=== PATIENT | male | born 1975 | race Caucasian/White ===

== ENCOUNTER 2016-06-16 17:44 | Emergency (ER) | payer OTHER ==
--- NOTE | 2016-06-16 18:22 | ED CLINICAL REPORT ---
Clinical Report - Physicians/Mid Levels [facility] [address] [place] [address] 06/16/2016 17:44 [id number] Time Seen: 17:55 Jun 16 2016. Arrived- By private vehicle. Historian- patient. CPT: ER phys charges level 3 (#[id number]). HISTORY OF PRESENT ILLNESS Chief Complaint: EYE REDNESS. 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 The patient did not sustain an injury. Eye discomfort, redness, irritation and discharge. Moderate right and left eye matting. Eyelid swelling. No photophobia, blurred vision or double vision. REVIEW OF SYSTEMS No fever, sore throat or cough. All systems otherwise negative, except as recorded above. PAST HISTORY See nurses notes. No history of prior eye injury, diabetes mellitus or glaucoma. He does not wear contact lenses. SOCIAL HISTORY Former smoker. No alcohol use or drug use. ADDITIONAL NOTES The nursing notes have been reviewed. PHYSICAL EXAM Vital Signs: 06/16/2016 17:52 BP: 139/96. HR: 94. RR: 16. O2 saturation: 98%. Temp: 98.4 F. Pain level now: 1/10. Appearance: Alert. Oriented X3. No acute distress. HEENT: Ears normal. Nose normal. Pharynx normal. Head appears normal to external inspection. Rt Eye: Mild eyelid edema and erythema. Injected conjunctiva. Exudate present. No foreign body under the eyelid. No conjunctival edema. Eyes: Visual acuity normal bilaterally. Right and left eyelid everted for examination. Corneas appear normal to inspection. Pupils equal, round and reactive to light. Accommodation normal. EOMs intact. Periorbital areas appear normal to inspection. Anterior chambers clear. Anterior chambers of normal depth. Lt Eye: Mild eyelid edema and erythema. Injected conjunctiva. Exudate present. No foreign body under the eyelid. No conjunctival edema. Neck: Neck supple. CVS: Normal heart rate and rhythm. Heart sounds normal. Respiratory: No respiratory distress. Breath sounds normal. Skin: No rash. Neuro: Oriented X 3. PROGRESS AND PROCEDURES Patient/family counseled. Disposition: Discharged. Condition: stable. CLINICAL IMPRESSION Acute mucopurulent conjunctivitis of the right eye and left eye. INSTRUCTIONS Warnings: Further evaluation is necessary. GENERAL WARNINGS: Return or contact your physician immediately if your condition worsens or changes unexpectedly, if not improving as expected, or if other problems arise. Prescription Medications: Garamycin ophthalmic solution 0.3% : Instill 1 drop into affected eye every 4 hours while awake for 1 week. Dispense five (5) mL. No refills. Substitution is permissible. Bactrim DS 800 mg / 160 mg: Take 1 tablet orally every 12 hours for 7 days. Dispense fourteen (14). No refills. Substitution is permissible. OTC Medications: Acetaminophen (available over the counter): take according to label instructions. Follow-up: Follow up with your doctor Sunday in three days if not better. Understanding of the discharge instructions verbalized by patient. (Electronically signed by Thuan Peter MD 06/16/2016 20:24)
--- NOTE | 2016-06-16 18:22 | ED CLINICAL REPORT ---
Clinical Report - Physicians/Mid Levels [facility] [address] [place] [address] 06/16/2016 17:44 [id number] Time Seen: 17:55 Jun 16 2016. Arrived- By private vehicle. Historian- patient. CPT: ER phys charges level 3 (#[id number]). HISTORY OF PRESENT ILLNESS Chief Complaint: EYE REDNESS. 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 The patient did not sustain an injury. Eye discomfort, redness, irritation and discharge. Moderate right and left eye matting. Eyelid swelling. No photophobia, blurred vision or double vision. REVIEW OF SYSTEMS No fever, sore throat or cough. All systems otherwise negative, except as recorded above. PAST HISTORY See nurses notes. No history of prior eye injury, diabetes mellitus or glaucoma. He does not wear contact lenses. SOCIAL HISTORY Former smoker. No alcohol use or drug use. ADDITIONAL NOTES The nursing notes have been reviewed. PHYSICAL EXAM Vital Signs: 06/16/2016 17:52 BP: 139/96. HR: 94. RR: 16. O2 saturation: 98%. Temp: 98.4 F. Pain level now: 1/10. Appearance: Alert. Oriented X3. No acute distress. HEENT: Ears normal. Nose normal. Pharynx normal. Head appears normal to external inspection. Rt Eye: Mild eyelid edema and erythema. Injected conjunctiva. Exudate present. No foreign body under the eyelid. No conjunctival edema. Eyes: Visual acuity normal bilaterally. Right and left eyelid everted for examination. Corneas appear normal to inspection. Pupils equal, round and reactive to light. Accommodation normal. EOMs intact. Periorbital areas appear normal to inspection. Anterior chambers clear. Anterior chambers of normal depth. Lt Eye: Mild eyelid edema and erythema. Injected conjunctiva. Exudate present. No foreign body under the eyelid. No conjunctival edema. Neck: Neck supple. CVS: Normal heart rate and rhythm. Heart sounds normal. Respiratory: No respiratory distress. Breath sounds normal. Skin: No rash. Neuro: Oriented X 3. PROGRESS AND PROCEDURES Patient/family counseled. Disposition: Discharged. Condition: stable. CLINICAL IMPRESSION Acute mucopurulent conjunctivitis of the right eye and left eye. INSTRUCTIONS Warnings: Further evaluation is necessary. GENERAL WARNINGS: Return or contact your physician immediately if your condition worsens or changes unexpectedly, if not improving as expected, or if other problems arise. Prescription Medications: Garamycin ophthalmic solution 0.3% : Instill 1 drop into affected eye every 4 hours while awake for 1 week. Dispense five (5) mL. No refills. Substitution is permissible. Bactrim DS 800 mg / 160 mg: Take 1 tablet orally every 12 hours for 7 days. Dispense fourteen (14). No refills. Substitution is permissible. OTC Medications: Acetaminophen (available over the counter): take according to label instructions. Follow-up: Follow up with your doctor Sunday in three days if not better. Understanding of the discharge instructions verbalized by patient. (Electronically signed by Thuan Peter MD 06/16/2016 20:24)
--- NOTE | 2016-06-16 18:22 | ED NURSING NOTES ---
Clinical Report - Nurses [facility] [address] [place] [address] 06/16/2016 17:44 Patient: MAEGAN VALENCIA TRIAGE Triage time 17:52 Jun 16 2016. Acuity: LEVEL 4. Chief Complaint: REDNESS TO RIGHT EYE. 18:00 06/16/16. Alert. No acute distress. SEPSIS SCREEN: Sepsis Screen. Negative (no infection suspected/documented). VISUAL ACUITY: Visual acuity performed without corrective lenses: able to read newsprint; see hand motion; perceive light; left eye 20/25; right eye 20/50 minus one letter; both eyes 20/20 minus one letter. Patient does not wear corrective lenses. --18:00 Nette Harrington 17:52 06/16/16. BP: 139/96 (regular adult cuff) taken on the left arm, while sitting. HR: 94. RR: 16 (regular and unlabored). O2 saturation: 98% on room air. Temp: 98.4 F (oral). Pain level now: 05/23. --18:00 Nette Harrington. Weight: 108.8 kg stated. Height/Length: 71 inches Per Patient. BMI: 33.5. --17:55 Nette Harrington. Medications None. --17:54 Nette Harrington. Medication/allergy information source: the patient. --18:00 Nette Harrington. Allergies None. --17:54 Nette Harrington. History Arrived by private vehicle. Historian: patient. Unaccompanied. No primary care physician. Onset. (One Week Ago). ( Pt reports that he had a white dot that appeared in his eye about a week ago. Has blurred vision. Eye is itchy. States that he used sty medication OTC.). He has had eye discomfort, eye irritation and blurred vision. He has had thick eye discharge (white drainage.). 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 Also Visine). PAST MEDICAL HX: Has had a prior eye injury. No history of diabetes mellitus or hypertension. No history of glaucoma. He does not wear contact lenses. Immunizations: status is unknown. SOCIAL HX: Former smoker (cigarette)- more than 2 packs per day. No alcohol use or drug use. FALL RISK ASSESSMENT: Fall risk assessment completed. No fall risk identified. NUTRITIONAL RISK ASSESSMENT: The nutritional risk assessment revealed no deficiencies. FUNCTIONAL ASSESSMENT: Functional assessment: no impairments noted. LEARNING NEEDS ASSESSMENT: The learning needs assessment revealed no barriers. SKIN INTEGRITY ASSESSMENT: Skin integrity risk assessment completed. No skin integrity risk identified. --18:00 Nette Harrington. ADDITIONAL SURGERIES: Lung biopsy. Tonsillectomy. --17:55 Nette Harrington. Assessment The patient states feels the same. --18:00 Nette Harrington. Interventions ID band on patient. --18:00 Nette Harrington. PHYSICAL ASSESSMENT 18:00 06/16/16. Ambulatory to room. GENERAL / NEURO / PSYCH: Alert. Appears in no acute distress. HEENT: No facial asymmetry noted. Pupils equal, round and reactive to light. EOM intact. Right ear within normal limits. Left ear within normal limits. Mouth inspection within normal limits. Pharynx within normal limits. RESPIRATORY: Respirations not labored. CVS: Capillary refill less than 2 seconds. SKIN: Skin is warm and dry. Normal skin turgor. --18:00 Nette Harrington. NURSING PROGRESS NOTES 18:00 06/16/16. The plan of care for this patient has been created. Head of bed elevated. Reassurance given. Two patient identifiers checked. Call light placed in reach. Side rails up x 1. Bed placed in lowest position. Brakes of bed on. Patient ready for evaluation- chart flagged and ED physician and ONLINE ADVERTISING MANAGER notified. --18:00 Nette Harrington. DISPOSITION / DISCHARGE 18:32 06/16/16. Departure time: 18:31 Jun 16 2016. Condition at departure: unchanged. The goals identified in the patient's plan of care were met. No learning barriers present. Discharge instructions provided and reviewed with the patient. Reviewed medication(s) side effects, precautions, dosing and course information. Prescription(s) given to the patient (Garamycin, Tylenol, Bactrim). Treatments reviewed. Reviewed referral to a primary care physician for followup. Patient verbalized understanding. Written instructions provided in Romansh. The patient was discharged by the physician. He was discharged home and unaccompanied at time of discharge. He left the Emergency Department ambulatory and via private vehicle. Patient driving. FALL RISK ASSESSMENT: Fall risk assessment completed. No fall risk identified. --18:32 Nette Harrington 18:31 06/16/16. BP: deferred. HR: deferred. RR: deferred. O2 saturation: deferred. Temp: deferred. Pain level now deferred. 17:52 06/16/16. BP: 139/96 (regular adult cuff) taken on the left arm, while sitting. HR: 94. RR: 16 (regular and unlabored). O2 saturation: 98% on room air. Temp: 98.4 F (oral). Pain level now: 05/23. --18:32 Nette Harrington. Locked/Released at 06/16/2016 18:32 by Nette Harrington,
--- NOTE | 2016-06-16 18:22 | ED NURSING NOTES ---
Clinical Report - Nurses [facility] [address] [place] [address] 06/16/2016 17:44 Patient: MAEGAN VALENCIA TRIAGE Triage time 17:52 Jun 16 2016. Acuity: LEVEL 4. Chief Complaint: REDNESS TO RIGHT EYE. 18:00 06/16/16. Alert. No acute distress. SEPSIS SCREEN: Sepsis Screen. Negative (no infection suspected/documented). VISUAL ACUITY: Visual acuity performed without corrective lenses: able to read newsprint; see hand motion; perceive light; left eye 20/25; right eye 20/50 minus one letter; both eyes 20/20 minus one letter. Patient does not wear corrective lenses. --18:00 Nette Harrington 17:52 06/16/16. BP: 139/96 (regular adult cuff) taken on the left arm, while sitting. HR: 94. RR: 16 (regular and unlabored). O2 saturation: 98% on room air. Temp: 98.4 F (oral). Pain level now: 05/23. --18:00 Nette Harrington. Weight: 108.8 kg stated. Height/Length: 71 inches Per Patient. BMI: 33.5. --17:55 Nette Harrington. Medications None. --17:54 Nette Harrington. Medication/allergy information source: the patient. --18:00 Nette Harrington. Allergies None. --17:54 Nette Harrington. History Arrived by private vehicle. Historian: patient. Unaccompanied. No primary care physician. Onset. (One Week Ago). ( Pt reports that he had a white dot that appeared in his eye about a week ago. Has blurred vision. Eye is itchy. States that he used sty medication OTC.). He has had eye discomfort, eye irritation and blurred vision. He has had thick eye discharge (white drainage.). 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 Also Visine). PAST MEDICAL HX: Has had a prior eye injury. No history of diabetes mellitus or hypertension. No history of glaucoma. He does not wear contact lenses. Immunizations: status is unknown. SOCIAL HX: Former smoker (cigarette)- more than 2 packs per day. No alcohol use or drug use. FALL RISK ASSESSMENT: Fall risk assessment completed. No fall risk identified. NUTRITIONAL RISK ASSESSMENT: The nutritional risk assessment revealed no deficiencies. FUNCTIONAL ASSESSMENT: Functional assessment: no impairments noted. LEARNING NEEDS ASSESSMENT: The learning needs assessment revealed no barriers. SKIN INTEGRITY ASSESSMENT: Skin integrity risk assessment completed. No skin integrity risk identified. --18:00 Nette Harrington. ADDITIONAL SURGERIES: Lung biopsy. Tonsillectomy. --17:55 Nette Harrington. Assessment The patient states feels the same. --18:00 Nette Harrington. Interventions ID band on patient. --18:00 Nette Harrington. PHYSICAL ASSESSMENT 18:00 06/16/16. Ambulatory to room. GENERAL / NEURO / PSYCH: Alert. Appears in no acute distress. HEENT: No facial asymmetry noted. Pupils equal, round and reactive to light. EOM intact. Right ear within normal limits. Left ear within normal limits. Mouth inspection within normal limits. Pharynx within normal limits. RESPIRATORY: Respirations not labored. CVS: Capillary refill less than 2 seconds. SKIN: Skin is warm and dry. Normal skin turgor. --18:00 Nette Harrington. NURSING PROGRESS NOTES 18:00 06/16/16. The plan of care for this patient has been created. Head of bed elevated. Reassurance given. Two patient identifiers checked. Call light placed in reach. Side rails up x 1. Bed placed in lowest position. Brakes of bed on. Patient ready for evaluation- chart flagged and ED physician and NUTRITION ASSOCIATE notified. --18:00 Nette Harrington. DISPOSITION / DISCHARGE 18:32 06/16/16. Departure time: 18:31 Jun 16 2016. Condition at departure: unchanged. The goals identified in the patient's plan of care were met. No learning barriers present. Discharge instructions provided and reviewed with the patient. Reviewed medication(s) side effects, precautions, dosing and course information. Prescription(s) given to the patient (Garamycin, Tylenol, Bactrim). Treatments reviewed. Reviewed referral to a primary care physician for followup. Patient verbalized understanding. Written instructions provided in Mohawk. The patient was discharged by the physician. He was discharged home and unaccompanied at time of discharge. He left the Emergency Department ambulatory and via private vehicle. Patient driving. FALL RISK ASSESSMENT: Fall risk assessment completed. No fall risk identified. --18:32 Nette Harrington 18:31 06/16/16. BP: deferred. HR: deferred. RR: deferred. O2 saturation: deferred. Temp: deferred. Pain level now deferred. 17:52 06/16/16. BP: 139/96 (regular adult cuff) taken on the left arm, while sitting. HR: 94. RR: 16 (regular and unlabored). O2 saturation: 98% on room air. Temp: 98.4 F (oral). Pain level now: 05/23. --18:32 Nette Harrington. Locked/Released at 06/16/2016 18:32 by Nette Harrington,
--- NOTE | 2016-06-16 20:24 | ED DISCHARGE INSTRUCTIONS ---
Patient: MAEGAN VALENCIA General Instructions [facility] VisitID: [id number] [place] [address] 41y, M Registration Date/Time: 06/16/2016 INSTRUCTIONS Warnings: Further evaluation is necessary. GENERAL WARNINGS: Return or contact your physician immediately if your condition worsens or changes unexpectedly, if not improving as expected, or if other problems arise. Prescription Medications: Garamycin ophthalmic solution 0.3% : Instill 1 drop into affected eye every 4 hours while awake for 1 week. Dispense five (5) mL. No refills. Substitution is permissible. Bactrim DS 800 mg / 160 mg: Take 1 tablet orally every 12 hours for 7 days. Dispense fourteen (14). No refills. Substitution is permissible. OTC Medications: Acetaminophen (available over the counter): take according to label instructions. Follow-up: Follow up with your doctor Sunday in three days if not better. Understanding of the discharge instructions verbalized by patient. ADDITIONAL INFORMATION Conjunctivitis, Bacterial You have a bacterial infection in the membranes covering the eye. The most common symptoms include a thick discharge from the eye, swollen eyelids, redness, eyelids sticking together upon awakening, and a gritty or scratchy feeling in the eye. The infection takes about 7-10 days to resolve with treatment. Home Care: Use prescribed eyedrops or ointment as directed to treat the infection. Apply a warm pack (towel soaked in warm water) to the affected eye 3-4 times a day. Do this just before applying medicine to the eye. Use a warm, wet cloth to wipe away crusting of the eyelids in the morning. This is caused by mucus drainage during the night. You may also use saline irrigating solution or artificial tears to rinse away mucus inside the eye. Do not put a patch over the eye. Wash your hands before and after touching the infected eye. This is to prevent spreading the infection to the other eye, and to other people. Do not share your towels or washcloths with others. You may use acetaminophen (Tylenol) or ibuprofen (Motrin, Advil) to control pain, unless another medicine was prescribed. [NOTE: If you have chronic liver or kidney disease or ever had a stomach ulcer or GI bleeding, talk with your doctor before using these medicines.] Do not wear contact lenses until your eyes have healed and all symptoms are gone. Follow Up with your doctor or this facility as directed, or if there has not been improvement within 5 days. Get Prompt Medical Attention if any of the following occur: Worsening vision Increasing pain in the eye Increasing swelling or redness of the eyelid Redness spreading around the eye You have been given the following additional information: Conjunctivitis, Bacterial (Electronically signed by Thuan Peter MD 06/16/2016 20:24)
--- NOTE | 2016-06-16 20:24 | ED MED RECONCILIATION SUMMARY ---
Patient: MAEGAN VALENCIA Medication Reconciliation Report [facility] VisitID: [id number] [address] [place] [address] 41y, M Registration Date/Time: 06/16/2016 Weight: 108.8 kg Height/Length: 71 in. BMI: 33.5 ALLERGIES: None The patient's Home Medications are listed below: NONE. The source(s) of the original Home Medication information: patient The following Medications were given to the patient in the Emergency Department: None. The following Medications were prescribed to the patient: Acetaminophen (available over the counter): take according to label instructions. -- Thuan Peter MD Garamycin ophthalmic solution 0.3% : Instill 1 drop into affected eye every 4 hours while awake for 1 week. Dispense five (5) mL. No refills. Substitution is permissible. -- Thuan Peter MD Bactrim DS 800 mg / 160 mg: Take 1 tablet orally every 12 hours for 7 days. Dispense fourteen (14). No refills. Substitution is permissible. -- Thuan Peter MD
--- NOTE | 2016-06-16 20:24 | ED MAR SUMMARY ---
..... Medication Administration Record [facility] [address] [place], [place] [id number] Patient: MAEGAN VALENCIA Visit ID: [id number] 41y, M Weight: 108.8 kg Height/Length: 71 in BMI: 33.5 ALLERGIES: None
--- NOTE | 2016-06-16 20:24 | ED MED RECONCILIATION SUMMARY ---
Patient: MAEGAN VALENCIA Medication Reconciliation Report [facility] VisitID: [id number] [address] [place] [address] 41y, M Registration Date/Time: 06/16/2016 Weight: 108.8 kg Height/Length: 71 in. BMI: 33.5 ALLERGIES: None The patient's Home Medications are listed below: NONE. The source(s) of the original Home Medication information: patient The following Medications were given to the patient in the Emergency Department: None. The following Medications were prescribed to the patient: Acetaminophen (available over the counter): take according to label instructions. -- Thuan Peter MD Garamycin ophthalmic solution 0.3% : Instill 1 drop into affected eye every 4 hours while awake for 1 week. Dispense five (5) mL. No refills. Substitution is permissible. -- Thuan Peter MD Bactrim DS 800 mg / 160 mg: Take 1 tablet orally every 12 hours for 7 days. Dispense fourteen (14). No refills. Substitution is permissible. -- Thuan Peter MD
--- NOTE | 2016-06-16 20:24 | ED MAR SUMMARY ---
..... Medication Administration Record [facility] [address] [place], [place] [id number] Patient: MAEGAN VALENCIA Visit ID: [id number] 41y, M Weight: 108.8 kg Height/Length: 71 in BMI: 33.5 ALLERGIES: None
== END 2016-06-16 18:32 | disposition home or self-care (01) ==
LOC: ED SRH 17:44
DX: H10.023 Other mucopurulent conjunctivitis, bilateral (principal); Z87.891 Personal history of nicotine dependence

== ENCOUNTER 2016-09-12 20:15 | Emergency (ER) | payer OTHER ==
--- NOTE | 2016-09-12 22:11 | DIAGNOSTIC IMAGING REPORT ---
PROCEDURE: XR CHEST 2 VIEW INDICATION: CHEST PAIN TECHNIQUE: PA and lateral views. COMPARISON: Compared to chest x-ray on 12/22/2013. FINDINGS: Lungs are clear. Heart and mediastinum are normal. Thorax is normal. IMPRESSION: 1. Negative chest.
--- NOTE | 2016-09-12 22:32 | ED ORDER SUMMARY ---
..... Patient: MAEGAN VALENCIA OrderSheet [facility] VisitID: [id number] [place] [address] 41y, M Registration Date/Time: 09/12/2016 ORDER SHEET Weight: 104.3 kg (stated) Allergies: No Known Drug Allergy GENERAL ORDERS: EKG - ER Stat (20:27 09/12/2016 DDavis R.N. per protocol) (Ack 20:39 CHategekimana) (20:39 CHategekimana) Chest 2V Urgent (20:39 09/12/2016 EKoroleva P.A.-C) (Ack 20:42 CHategekimana) (21:16 MCampbell) Rapid Influenza Screen (Nasal Pharyngeal) (n) Urgent (20:39 09/12/2016 EKoroleva P.A.-C) (20:41 DDavis R.N.) Cardiac Panel Stat (20:39 09/12/2016 EKoroleva P.A.-C) (20:41 DDavis R.N.) Lactate, Serum Urgent (20:59 09/12/2016 EKoroleva P.A.-C) (21:00 DDavis R.N.) PCT (Procalcitonin) Urgent (20:59 09/12/2016 EKoroleva P.A.-C) (21:00 DDavis R.N.) Vitals (21:31 09/12/2016 EKoroleva P.A.-C) (21:32 DDavis R.N.) MEDICATION ORDERS: Doxycycline Monohydrate PO 100 mg (NOW) (22:19 09/12/2016 EKoroleva P.A.-C) (22:26 DDavis R.N.) IV FLUIDS: IV NS : initial bolus 1000 mL (1000 mL/hr), then 1000 mL/hr for X1 (NOW); Wilver (20:39 09/12/2016 EKoroleva P.A.-C) (20:42 DDavis R.N.) ORDER SHEET NOTES: [Electronically signed by Caren Goss PSepidehASepideh-C (22:28 09/12/2016)] [Electronically signed by Ravi Heller R.N. (23:06 09/12/2016)] [Electronically locked/signed by Ravi Heller R.N. (23:06 09/12/2016)]
--- NOTE | 2016-09-12 22:32 | ED CLINICAL REPORT ---
Clinical Report - Physicians/Mid Levels [facility] [address] [place] [address] 09/12/2016 20:17 Patient: MAEGAN VALENCIA Time Seen: 20:34 Sep 12 2016. Arrived- By private vehicle. Historian- patient (brother). HISTORY OF PRESENT ILLNESS Chief Complaint: DYSPNEA and HISTORY OF CHRONIC OBSTRUCTIVE PULMONARY DISEASE. This started last night and is still present. The patient has had a cough and chills. No chest pain. (patient reports shortness of breath over the last 2 days, and Relafen recently ill. Denies any hemoptysis. Denies any pain. Reports some chills, possible fevers. Patient recently received a tattoo in his right arm Denies any arthralgias. Denies any emesis or diarrhea. Denies any foreign travel. Patient reports daily smoker since age of 8). REVIEW OF SYSTEMS No vomiting, diarrhea or joint pain. PAST HISTORY Problems: Conjunctivitis. Eye Injury. Substance Abuse. Hypertension. Atypical Chest Pain. COPD - Chronic Obstructive Pulmonary Disease. Contusion. Bronchitis. Tetanus Status. Epididymitis. Immunizations. Additional Surgeries: Lung biopsy. Tonsillectomy. Medications: None. Allergies: No Known Drug Allergy. SOCIAL HISTORY Current every day heavy tobacco smoker. No alcohol use or drug use. ADDITIONAL NOTES The nursing notes have been reviewed. PHYSICAL EXAM Vital Signs: 09/12/2016 20:26 BP: 134/99. HR: 123. RR: 22. O2 saturation: 100%. Temp: 98.4 F. Pain level now: 0/10. Appearance: Alert. ENT: Nose normal. Pharynx normal. Neck: Normal inspection. CVS: Tachycardia. Respiratory: No respiratory distress. No splinting. Abdomen: Soft and nontender. No organomegaly. No guarding or distention. Back: Normal inspection. Skin: Skin warm. Normal skin color. Neuro: Oriented X 3. LABS, X-RAYS, AND EKG EKG: EKG time: (2038). No acute process. No acute ischemia. Rate: 114. Normal P waves. Normal QRS complex. Normal axis. Normal ST and T waves and QT. The study has been interpreted contemporaneously. The EKG appears to be a good tracing. Chest X-ray: (IMPRESSION: 1. Negative chest. Electronically Final signed by:Terrence Romero MD 09/12/2016 10:08:00 PM). Laboratory Tests: CBC w Diff: (DURGA: 09/12/2016 20:30) ( [facility] 09/12/2016 21:38) Final results Test Result Flag Units (Reference) WHITE BLOOD COUNT 13.9 H K/uL (4.5-11.5) RED BLOOD COUNT 5.82 M/uL (4.50-5.90) HEMOGLOBIN 17.5 gm/dL (13.5-17.5) HEMATOCRIT 52.2 % (41.0-53.0) MEAN CELL VOLUME 90 fL (80-100) MEAN CORPUSCULAR HGB 30 pg (26-34) MEAN CORPUSCULAR HGB CONC 34 g/dL (31-37) RED CELL DISTRIBUTION WIDTH 13.6 % (11.6-14.8) PLATELET COUNT 213 K/uL (150-400) POLY % 27 L % (50-75) BAND % 2 % (0-8) LYMPH 63 H % (25-40) MONO 6 % (3-14) EOSINOPHIL % 2 % (0-4) BASOPHIL % 0 % (0-2) METAMYELOCYTE % 0 % (0-1) MYELOCYTE 0 % (0-1) OTHER CELL TYPE 0 RBC MORPHOLOGY NORMOCHROMIC~~NORMOCYTIC OCT COMMENT 1+ BASKET CELLS Lactate, Serum: (DURGA: 09/12/2016 21:05) ( [facility] 09/12[facility] 22:00) Final results Test Result Flag Units (Reference) LACTIC ACID 1.4 mmol/L (0.4-2.0) [id number]: (DURGA: 09/12/2016 21:05) ( [facility] 09[facility]12[facility]2016 21:59) Final results Test Result Flag Units (Reference) PROCALCITONIN <0.5 ng/mL (0-0.5) PCT Concentration: Interpretation : Risk/option for action PCT <=0.5 ng/mL : Systemic : Low risk forinfection(sepsis): progression to severeis not likely. : systemic infection.Local bacterial : CAUTION-PCT levelsinfection is : below 0.5 ng/mL do notpossible. : exclude an infection,because localizedinfections (withoutsystemic signs) may beassociated with suchlow levels. If PCT ismeasured very earlyafter a bacterialchallenge (usually <6hours), these valuesmay still be low. Inthis case PCT shouldbe re-assessed 6-24hours later. PCT >0.5 and : Systemic infection: Moderate risk for<= 2 ng/mL : (sepsis) is : progression to severepossible, but : systemic infection.other conditions : The patient should beare known to : closely monitoredelevate PCT. : both clinically andby re-assessing PCTwithin 6-24 hours. PCT > 2 ng/mL : Systemic infection: High risk for(sepsis) is likely: progression to severeunless other : systemic infection.causes are known. : PCT >= 10 ng/mL : Important systemic: High likelihood ofinflammatory : severe sepsis orresponse, almost : septic shock.exclusively due to:severe bacterial :sepsis or septic :shock. : CHEM 13 PANEL: (DURGA: 09/12/2016 20:30) ( MsgRcvd 09/12/2016 21:08) Final results Test Result Flag Units (Reference) GLUCOSE 143 H mg/dL (70-110) BUN 13 mg/dL (7-18) CREATININE 1.2 mg/dL (0.6-1.3) Estimated GFR >60 mL/min Estimated GFR- >60 mL/min Note: Persistent reduction over 3 months in eGFR<60 mL/min/1.73 m2 defines CKD. Patients with eGFR values>=60 mL/min/1.73 m2 may also have CKD if evidence ofpersistent proteinuria. Additional information may be foundat www.kidney.org. SODIUM 135 L mmol/L (136-145) POTASSIUM 3.7 mmol/L (3.5-5.1) CHLORIDE 102 mmol/L (98-107) CARBON DIOXIDE 24 mmol/L (21-32) CALCIUM 8.8 mg/dL (8.5-10.1) TOTAL PROTEIN 8.1 g/dL (6.4-8.2) ALBUMIN 3.7 g/dL (3.3-5.0) BILIRUBIN, TOTAL 0.5 mg/dL (0.0-1.0) ALKALINE PHOSPHATASE 171 H U/L (46-116) AST (SGOT) 74 H U/L (15-37) ALT (SGPT) 163 H U/L (12-78) CPK 54 U/L (24-260) MAGNESIUM 2.2 mg/dL (1.8-2.4) TROPONIN I <0.05 L ng/mL (0.00-1.5) TROPONIN REFERENCE RANGE:<0.1 NEGATIVE0.1-1.5 INDETERMINANT>1.5 POSITIVE Rapid Influenza Screen: (DURGA: 09/12/2016 20:30) ( MsgRcvd 09/12/2016 21:08) Final results SPECIMEN DESCRIPTION: N Test Result Flag Units (Reference) RAPID INFLUENZA SCREEN DATE: 09/12/16 INFLUENZA A: NEGATIVE SCREEN FOR INFLUENZA A INFLUENZA B: NEGATIVE SCREEN FOR INFLUENZA B . PROGRESS AND PROCEDURES Course of Care: Patient was signed of leukocytosis in the emergency department, otherwise his tachycardia has resolved after IV hydration. Chest x-ray was signs of no acute process, patient is a 2-3 pack-a-day smoker since age 8, significant smoking cessation and encouraged rest such was discussed with him in detail.ent understands her risks for cardiac disease, cancer. Will start on COPD exacerbation with Dr. Sawyer. Pro-calcitonin a lactic acid are unremarkable. 09/12/2016 22:19 BP: 133/91. HR: 94. RR: 20. O2 saturation: 99%. 09/12/2016 22:11 HR: 90. O2 saturation: 98%. Patient is stable. Symptoms better. Patient/family counseled. 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 This is a partial list of diagnoses considered. Disposition: Discharged. CLINICAL IMPRESSION Acute exacerbation of COPD. INSTRUCTIONS Do not work tomorrow. Warnings: Further evaluation is necessary. Prescription Medications: Ibuprofen 600 mg tablets: take 1 tablet orally every 6 hours for 5 days, as needed for pain. Dispense fifteen (15). No refill. Doxycycline 100 mg: Take 1 capsule orally every 12 hours for 10 days. No refill. Follow-up: Follow up with your doctor in three days. (Electronically signed by Caren Goss P.A.-C 09/12/2016 22:28)
--- NOTE | 2016-09-12 22:32 | ED NURSING NOTES ---
Clinical Report - Nurses [facility] [address] [place] [address] 09/12/2016 20:17 Patient: MAEGAN VALENCIA TRIAGE Triage time 20:27. Acuity: LEVEL 3. Chief Complaint: SHORTNESS OF BREATH. Alert. JASMIN COMA SCORE: Jasmin Coma Scale: 15- eyes open spontaneously (4); best verbal response- oriented x 4 (5); best motor response- obeys commands (6). --20:37 Ravi Heller R.N. 20:26 09/12/16. BP: 134/99. HR: 123. RR: 22. O2 saturation: 100% on room air. Temp: 98.4 F (oral). Pain level now: 0/10. --20:37 Ravi Heller R.N. Weight: 104.3 kg stated. Height/Length: 71 inches Per Patient. BMI: 32.1. --20:26 Ravi Heller R.N. Medications None. --20:29 Ravi Heller R.N. Allergies No Known Drug Allergy. --20:28 Ravi Heller R.N. History Arrived by private vehicle. Historian: patient. This started yesterday. Onset. (yesterday in the afternoon). PAST MEDICAL HX: Chronic obstructive pulmonary disease. SOCIAL HX: Heavy tobacco smoker (cigarette)- 1-2 packs per day. No alcohol use or drug use. SELF HARM ASSESSMENT: A self harm assessment was performed. The patient answered "no" to the question "Do you have thoughts of harming or killing yourself?" and "Are you here because you tried to hurt yourself?". FALL RISK ASSESSMENT: Fall risk assessment completed. No fall risk identified. NUTRITIONAL RISK ASSESSMENT: The nutritional risk assessment revealed no deficiencies. FUNCTIONAL ASSESSMENT: Functional assessment: no impairments noted. LEARNING NEEDS ASSESSMENT: The learning needs assessment revealed no barriers. SKIN INTEGRITY ASSESSMENT: Skin integrity risk assessment completed. No skin integrity risk identified. --20:37 Ravi Heller R.N. PROBLEMS: Conjunctivitis. Eye Injury. Substance Abuse. Hypertension. Atypical Chest Pain. COPD - Chronic Obstructive Pulmonary Disease. Contusion. Bronchitis. Tetanus Status. Epididymitis. Immunizations. --20:28 Ravi Heller R.N. ADDITIONAL SURGERIES: Lung biopsy. Tonsillectomy. --20:29 Ravi Heller R.N. Interventions ID band on patient. To treatment room. --20:37 Ravi Heller R.N. PHYSICAL ASSESSMENT Ambulatory to room. GENERAL / NEURO / PSYCH: Alert. Oriented X 4. Appears anxious. RESPIRATORY: Mild respiratory distress. The patient can speak in full sentences. Breath sounds within normal limits. CVS: Cardiac rhythm: sinus tachycardia. Capillary refill less than 2 seconds. SKIN: Skin is warm. Skin is slightly diaphoretic. --20:38 Ravi Heller R.N. ( Patient sinus tachy on medical receptionist biller. Patient to xray). --20:45 Ravi Heller R.N. NURSING PROGRESS NOTES creative art therapist, pulse oximeter and NIBP monitor placed on patient. Patient gowned. Head of bed elevated. Two patient identifiers checked. Call light placed in reach. Side rails up x 1. Bed placed in lowest position. Brakes of bed on. Patient ready for evaluation- chart flagged. Patient waiting for evaluation. --20:38 Ravi Heller R.N. EKG time: (2038 PM). EKG was ordered, performed by a tech and shown to the PA. --20:40 Doris Castro 20:32 09/12/2016 Site #1 started via IV in the right antecubital space with an 20g angiocath, with aseptic technique and good blood return; two attempts. Blood drawn: rainbow set. Labeled in the presence of the patient and sent to the lab. Saline lock flushed with 10 mL saline. --20:42 Ravi Heller R.N. <<STRICKEN ENTRY-- 20:41 09/12/2016 Started bag #1 1000 mL IV Fluids IV NS (Saline); at 1000 mL/hr over 1 hour(s) via site #1 --20:42 Ravi Heller R.N. --END STRIKE>> Change to Details. --20:42 Ravi Heller R.N. 20:41 09/12/2016 Started bag #1 1000 IV Fluids IV NS (Saline); at 1000 mL/hr over 1 hour(s) via site #1. Allergies verified and confirmed 5 rights. IV patency established. IV site checked: no pain, redness, or swelling. IV flushed thoroughly pre- and post-medication administration. Completed per protocol. --20:42 Ravi Heller R.N. 21:39 09/12/16. BP: 133/76 (regular adult cuff) taken on the left arm, via an automated monitor, while sitting. HR: 106. RR: 16 (regular). O2 saturation: 97% on room air. Temp: 98.5 F (oral). --21:40 Logan Moser, FABIOLA Pulmonary Physical Therapist 22:11 09/12/16. HR: 90. O2 saturation: 98% on room air. --22:12 Logan Moser, ER Pulmonary Physical Therapist 22:16 09/12/2016 Started bag #2 1000 mL IV Fluids IV NS (Saline); at 1000 mL/hr over 1 hour(s) via site #1. Allergies verified and confirmed 5 rights. IV patency established. IV site checked: no pain, redness, or swelling. IV flushed thoroughly pre- and post-medication administration. Completed per protocol. --22:16 Ravi Heller R.N. 22:17 09/12/2016 IV Fluids IV NS Discontinued: completed. Total amount infused: 1000 mL. IV patency established. IV site checked: no pain, redness, or swelling. IV flushed thoroughly. --22:17 Ravi Heller R.N. 22:26 09/12/2016 DOXYCYCLINE MONOHYDRATE PO Tablets 100 mg given. Allergies verified and confirmed 5 rights. --22:26 Ravi Heller R.N. 23:02 09/12/2016 IV Fluids IV NS Discontinued: completed upon discharge. Total amount infused: 1000 mL. IV patency established. IV site checked: no pain, redness, or swelling. IV flushed thoroughly. --23:06 Ravi Heller R.N. DISPOSITION / DISCHARGE 23:05 09/12/2016 Site #1 removed upon discharge. Manual pressure and bandage applied. --23:05 Arron, Ravi, R.N. Departure time: 23:05. Condition at departure: stable. No learning barriers present. Discharge instructions provided and reviewed with the patient. Reviewed warnings. Reviewed medication(s) side effects, precautions, dosing and course information. Prescription(s) given to the patient. Treatments reviewed. Reviewed referrals for followup. Patient verbalized understanding. Written instructions provided in Hebrew. The patient was discharged home and accompanied by family. He left the Emergency Department ambulatory and via private vehicle. Family member driving. --23:06 Ravi Heller R.N. 23:04 09/12/16. BP: 144/90. HR: 91. RR: 24 (regular and unlabored). O2 saturation: 100% on room air. Pain level now: 0/10. --23:06 Ravi Hellre R.N. Locked/Released at 09/12/2016 23:06 by Ravi Heller R.N.
--- NOTE | 2016-09-12 22:32 | ED NURSING NOTES ---
Clinical Report - Nurses [facility] [address] [place] [address] 09/12/2016 20:17 Patient: MAEGAN VALENCIA TRIAGE Triage time 20:27. Acuity: LEVEL 3. Chief Complaint: SHORTNESS OF BREATH. Alert. JASMIN COMA SCORE: Jasmin Coma Scale: 15- eyes open spontaneously (4); best verbal response- oriented x 4 (5); best motor response- obeys commands (6). --20:37 Ravi Heller R.N. 20:26 09/12/16. BP: 134/99. HR: 123. RR: 22. O2 saturation: 100% on room air. Temp: 98.4 F (oral). Pain level now: 0/10. --20:37 Ravi Heller R.N. Weight: 104.3 kg stated. Height/Length: 71 inches Per Patient. BMI: 32.1. --20:26 Ravi Heller R.N. Medications None. --20:29 Ravi Heller R.N. Allergies No Known Drug Allergy. --20:28 Ravi Heller R.N. History Arrived by private vehicle. Historian: patient. This started yesterday. Onset. (yesterday in the afternoon). PAST MEDICAL HX: Chronic obstructive pulmonary disease. SOCIAL HX: Heavy tobacco smoker (cigarette)- 1-2 packs per day. No alcohol use or drug use. SELF HARM ASSESSMENT: A self harm assessment was performed. The patient answered "no" to the question "Do you have thoughts of harming or killing yourself?" and "Are you here because you tried to hurt yourself?". FALL RISK ASSESSMENT: Fall risk assessment completed. No fall risk identified. NUTRITIONAL RISK ASSESSMENT: The nutritional risk assessment revealed no deficiencies. FUNCTIONAL ASSESSMENT: Functional assessment: no impairments noted. LEARNING NEEDS ASSESSMENT: The learning needs assessment revealed no barriers. SKIN INTEGRITY ASSESSMENT: Skin integrity risk assessment completed. No skin integrity risk identified. --20:37 Ravi Heller R.N. PROBLEMS: Conjunctivitis. Eye Injury. Substance Abuse. Hypertension. Atypical Chest Pain. COPD - Chronic Obstructive Pulmonary Disease. Contusion. Bronchitis. Tetanus Status. Epididymitis. Immunizations. --20:28 Ravi Heller R.N. ADDITIONAL SURGERIES: Lung biopsy. Tonsillectomy. --20:29 Ravi Heller R.N. Interventions ID band on patient. To treatment room. --20:37 Ravi Heller R.N. PHYSICAL ASSESSMENT Ambulatory to room. GENERAL / NEURO / PSYCH: Alert. Oriented X 4. Appears anxious. RESPIRATORY: Mild respiratory distress. The patient can speak in full sentences. Breath sounds within normal limits. CVS: Cardiac rhythm: sinus tachycardia. Capillary refill less than 2 seconds. SKIN: Skin is warm. Skin is slightly diaphoretic. --20:38 Ravi Heller R.N. ( Patient sinus tachy on surveillance monitor. Patient to xray). --20:45 Ravi Heller R.N. NURSING PROGRESS NOTES school lunch monitor, pulse oximeter and NIBP monitor placed on patient. Patient gowned. Head of bed elevated. Two patient identifiers checked. Call light placed in reach. Side rails up x 1. Bed placed in lowest position. Brakes of bed on. Patient ready for evaluation- chart flagged. Patient waiting for evaluation. --20:38 Ravi Heller R.N. EKG time: (2038 PM). EKG was ordered, performed by a tech and shown to the PA. --20:40 Doris Castro 20:32 09/12/2016 Site #1 started via IV in the right antecubital space with an 20g angiocath, with aseptic technique and good blood return; two attempts. Blood drawn: rainbow set. Labeled in the presence of the patient and sent to the lab. Saline lock flushed with 10 mL saline. --20:42 Ravi Heller R.N. <<STRICKEN ENTRY-- 20:41 09/12/2016 Started bag #1 1000 mL IV Fluids IV NS (Saline); at 1000 mL/hr over 1 hour(s) via site #1 --20:42 Ravi Heller R.N. --END STRIKE>> Change to Details. --20:42 Ravi Heller R.N. 20:41 09/12/2016 Started bag #1 1000 IV Fluids IV NS (Saline); at 1000 mL/hr over 1 hour(s) via site #1. Allergies verified and confirmed 5 rights. IV patency established. IV site checked: no pain, redness, or swelling. IV flushed thoroughly pre- and post-medication administration. Completed per protocol. --20:42 Ravi Heller R.N. 21:39 09/12/16. BP: 133/76 (regular adult cuff) taken on the left arm, via an automated monitor, while sitting. HR: 106. RR: 16 (regular). O2 saturation: 97% on room air. Temp: 98.5 F (oral). --21:40 Logan Moser, FABIOLA Procurement Coordinator 22:11 09/12/16. HR: 90. O2 saturation: 98% on room air. --22:12 Logan Moser, ER Procurement Coordinator 22:16 09/12/2016 Started bag #2 1000 mL IV Fluids IV NS (Saline); at 1000 mL/hr over 1 hour(s) via site #1. Allergies verified and confirmed 5 rights. IV patency established. IV site checked: no pain, redness, or swelling. IV flushed thoroughly pre- and post-medication administration. Completed per protocol. --22:16 Ravi Heller R.N. 22:17 09/12/2016 IV Fluids IV NS Discontinued: completed. Total amount infused: 1000 mL. IV patency established. IV site checked: no pain, redness, or swelling. IV flushed thoroughly. --22:17 Ravi Heller R.N. 22:26 09/12/2016 DOXYCYCLINE MONOHYDRATE PO Tablets 100 mg given. Allergies verified and confirmed 5 rights. --22:26 Ravi Heller R.N. 23:02 09/12/2016 IV Fluids IV NS Discontinued: completed upon discharge. Total amount infused: 1000 mL. IV patency established. IV site checked: no pain, redness, or swelling. IV flushed thoroughly. --23:06 Ravi Heller R.N. DISPOSITION / DISCHARGE 23:05 09/12/2016 Site #1 removed upon discharge. Manual pressure and bandage applied. --23:05 Arron, Ravi, R.N. Departure time: 23:05. Condition at departure: stable. No learning barriers present. Discharge instructions provided and reviewed with the patient. Reviewed warnings. Reviewed medication(s) side effects, precautions, dosing and course information. Prescription(s) given to the patient. Treatments reviewed. Reviewed referrals for followup. Patient verbalized understanding. Written instructions provided in Macedonian. The patient was discharged home and accompanied by family. He left the Emergency Department ambulatory and via private vehicle. Family member driving. --23:06 Ravi Heller R.N. 23:04 09/12/16. BP: 144/90. HR: 91. RR: 24 (regular and unlabored). O2 saturation: 100% on room air. Pain level now: 0/10. --23:06 Ravi Heller R.N. Locked/Released at 09/12/2016 23:06 by Ravi Heller R.N.
--- NOTE | 2016-09-12 22:32 | ED ORDER SUMMARY ---
..... Patient: MAEGAN VALENCIA OrderSheet [facility] VisitID: [id number] [place] [address] 41y, M Registration Date/Time: 09/12/2016 ORDER SHEET Weight: 104.3 kg (stated) Allergies: No Known Drug Allergy GENERAL ORDERS: EKG - ER Stat (20:27 09/12/2016 DDavis R.N. per protocol) (Ack 20:39 CHategekimana) (20:39 CHategekimana) Chest 2V Urgent (20:39 09/12/2016 EKoroleva P.A.-C) (Ack 20:42 CHategekimana) (21:16 MCampbell) Rapid Influenza Screen (Nasal Pharyngeal) (n) Urgent (20:39 09/12/2016 EKoroleva P.A.-C) (20:41 DDavis R.N.) Cardiac Panel Stat (20:39 09/12/2016 EKoroleva P.A.-C) (20:41 DDavis R.N.) Lactate, Serum Urgent (20:59 09/12/2016 EKoroleva P.A.-C) (21:00 DDavis R.N.) PCT (Procalcitonin) Urgent (20:59 09/12/2016 EKoroleva P.A.-C) (21:00 DDavis R.N.) Vitals (21:31 09/12/2016 EKoroleva P.A.-C) (21:32 DDavis R.N.) MEDICATION ORDERS: Doxycycline Monohydrate PO 100 mg (NOW) (22:19 09/12/2016 EKoroleva P.A.-C) (22:26 DDavis R.N.) IV FLUIDS: IV NS : initial bolus 1000 mL (1000 mL/hr), then 1000 mL/hr for X1 (NOW); Wilver (20:39 09/12/2016 EKoroleva P.A.-C) (20:42 DDavis R.N.) ORDER SHEET NOTES: [Electronically signed by Caren Goss PSepidehASepideh-C (22:28 09/12/2016)] [Electronically signed by Ravi Heller R.N. (23:06 09/12/2016)] [Electronically locked/signed by Ravi Heller R.N. (23:06 09/12/2016)]
--- NOTE | 2016-09-12 22:32 | ED CLINICAL REPORT ---
Clinical Report - Physicians/Mid Levels [facility] [address] [place] [address] 09/12/2016 20:17 Patient: MAEGAN VALENCIA Time Seen: 20:34 Sep 12 2016. Arrived- By private vehicle. Historian- patient (brother). HISTORY OF PRESENT ILLNESS Chief Complaint: DYSPNEA and HISTORY OF CHRONIC OBSTRUCTIVE PULMONARY DISEASE. This started last night and is still present. The patient has had a cough and chills. No chest pain. (patient reports shortness of breath over the last 2 days, and Relafen recently ill. Denies any hemoptysis. Denies any pain. Reports some chills, possible fevers. Patient recently received a tattoo in his right arm Denies any arthralgias. Denies any emesis or diarrhea. Denies any foreign travel. Patient reports daily smoker since age of 8). REVIEW OF SYSTEMS No vomiting, diarrhea or joint pain. PAST HISTORY Problems: Conjunctivitis. Eye Injury. Substance Abuse. Hypertension. Atypical Chest Pain. COPD - Chronic Obstructive Pulmonary Disease. Contusion. Bronchitis. Tetanus Status. Epididymitis. Immunizations. Additional Surgeries: Lung biopsy. Tonsillectomy. Medications: None. Allergies: No Known Drug Allergy. SOCIAL HISTORY Current every day heavy tobacco smoker. No alcohol use or drug use. ADDITIONAL NOTES The nursing notes have been reviewed. PHYSICAL EXAM Vital Signs: 09/12/2016 20:26 BP: 134/99. HR: 123. RR: 22. O2 saturation: 100%. Temp: 98.4 F. Pain level now: 0/10. Appearance: Alert. ENT: Nose normal. Pharynx normal. Neck: Normal inspection. CVS: Tachycardia. Respiratory: No respiratory distress. No splinting. Abdomen: Soft and nontender. No organomegaly. No guarding or distention. Back: Normal inspection. Skin: Skin warm. Normal skin color. Neuro: Oriented X 3. LABS, X-RAYS, AND EKG EKG: EKG time: (2038). No acute process. No acute ischemia. Rate: 114. Normal P waves. Normal QRS complex. Normal axis. Normal ST and T waves and QT. The study has been interpreted contemporaneously. The EKG appears to be a good tracing. Chest X-ray: (IMPRESSION: 1. Negative chest. Electronically Final signed by:Terrence Romero MD 09/12/2016 10:08:00 PM). Laboratory Tests: CBC w Diff: (DURGA: 09/12/2016 20:30) ( [facility] 09/12/2016 21:38) Final results Test Result Flag Units (Reference) WHITE BLOOD COUNT 13.9 H K/uL (4.5-11.5) RED BLOOD COUNT 5.82 M/uL (4.50-5.90) HEMOGLOBIN 17.5 gm/dL (13.5-17.5) HEMATOCRIT 52.2 % (41.0-53.0) MEAN CELL VOLUME 90 fL (80-100) MEAN CORPUSCULAR HGB 30 pg (26-34) MEAN CORPUSCULAR HGB CONC 34 g/dL (31-37) RED CELL DISTRIBUTION WIDTH 13.6 % (11.6-14.8) PLATELET COUNT 213 K/uL (150-400) POLY % 27 L % (50-75) BAND % 2 % (0-8) LYMPH 63 H % (25-40) MONO 6 % (3-14) EOSINOPHIL % 2 % (0-4) BASOPHIL % 0 % (0-2) METAMYELOCYTE % 0 % (0-1) MYELOCYTE 0 % (0-1) OTHER CELL TYPE 0 RBC MORPHOLOGY NORMOCHROMIC~~NORMOCYTIC OCT COMMENT 1+ BASKET CELLS Lactate, Serum: (DURGA: 09/12/2016 21:05) ( [facility] 09/12/2016 22:00) Final results Test Result Flag Units (Reference) LACTIC ACID 1.4 mmol/L (0.4-2.0) [id number]: (DURGA: 09/12/2016 21:05) ( [facility] 09/12/2016 21:59) Final results Test Result Flag Units (Reference) PROCALCITONIN <0.5 ng/mL (0-0.5) PCT Concentration: Interpretation : Risk/option for action PCT <=0.5 ng/mL : Systemic : Low risk forinfection(sepsis): progression to severeis not likely. : systemic infection.Local bacterial : CAUTION-PCT levelsinfection is : below 0.5 ng/mL do notpossible. : exclude an infection,because localizedinfections (withoutsystemic signs) may beassociated with suchlow levels. If PCT ismeasured very earlyafter a bacterialchallenge (usually <6hours), these valuesmay still be low. Inthis case PCT shouldbe re-assessed 6-24hours later. PCT >0.5 and : Systemic infection: Moderate risk for<= 2 ng/mL : (sepsis) is : progression to severepossible, but : systemic infection.other conditions : The patient should beare known to : closely monitoredelevate PCT. : both clinically andby re-assessing PCTwithin 6-24 hours. PCT > 2 ng/mL : Systemic infection: High risk for(sepsis) is likely: progression to severeunless other : systemic infection.causes are known. : PCT >= 10 ng/mL : Important systemic: High likelihood ofinflammatory : severe sepsis orresponse, almost : septic shock.exclusively due to:severe bacterial :sepsis or septic :shock. : CHEM 13 PANEL: (DURGA: 09/12/2016 20:30) ( MsgRcvd 09/12/2016 21:08) Final results Test Result Flag Units (Reference) GLUCOSE 143 H mg/dL (70-110) BUN 13 mg/dL (7-18) CREATININE 1.2 mg/dL (0.6-1.3) Estimated GFR >60 mL/min Estimated GFR- >60 mL/min Note: Persistent reduction over 3 months in eGFR<60 mL/min/1.73 m2 defines CKD. Patients with eGFR values>=60 mL/min/1.73 m2 may also have CKD if evidence ofpersistent proteinuria. Additional information may be foundat www.kidney.org. SODIUM 135 L mmol/L (136-145) POTASSIUM 3.7 mmol/L (3.5-5.1) CHLORIDE 102 mmol/L (98-107) CARBON DIOXIDE 24 mmol/L (21-32) CALCIUM 8.8 mg/dL (8.5-10.1) TOTAL PROTEIN 8.1 g/dL (6.4-8.2) ALBUMIN 3.7 g/dL (3.3-5.0) BILIRUBIN, TOTAL 0.5 mg/dL (0.0-1.0) ALKALINE PHOSPHATASE 171 H U/L (46-116) AST (SGOT) 74 H U/L (15-37) ALT (SGPT) 163 H U/L (12-78) CPK 54 U/L (24-260) MAGNESIUM 2.2 mg/dL (1.8-2.4) TROPONIN I <0.05 L ng/mL (0.00-1.5) TROPONIN REFERENCE RANGE:<0.1 NEGATIVE0.1-1.5 INDETERMINANT>1.5 POSITIVE Rapid Influenza Screen: (DURGA: 09/12/2016 20:30) ( MsgRcvd 09/12/2016 21:08) Final results SPECIMEN DESCRIPTION: N Test Result Flag Units (Reference) RAPID INFLUENZA SCREEN DATE: 09/12/16 INFLUENZA A: NEGATIVE SCREEN FOR INFLUENZA A INFLUENZA B: NEGATIVE SCREEN FOR INFLUENZA B . PROGRESS AND PROCEDURES Course of Care: Patient was signed of leukocytosis in the emergency department, otherwise his tachycardia has resolved after IV hydration. Chest x-ray was signs of no acute process, patient is a 2-3 pack-a-day smoker since age 8, significant smoking cessation and encouraged rest such was discussed with him in detail.ent understands her risks for cardiac disease, cancer. Will start on COPD exacerbation with Dr. Saywer. Pro-calcitonin a lactic acid are unremarkable. 09/12/2016 22:19 BP: 133/91. HR: 94. RR: 20. O2 saturation: 99%. 09/12/2016 22:11 HR: 90. O2 saturation: 98%. Patient is stable. Symptoms better. Patient/family counseled. Differential Diagnosis: I considered asthma, chronic obstructive pulmonary disease, pneumonia, adult respiratory distress syndrome, pneumothorax, pleural effusion, congestive heart failure, diabetic ketoacidosis, uremia, anemia, hyperventilation and [employer]LE[employer] disease as a possible cause of dyspnea in this patient. This is a partial list of diagnoses considered. Disposition: Discharged. CLINICAL IMPRESSION Acute exacerbation of COPD. INSTRUCTIONS Do not work tomorrow. Warnings: Further evaluation is necessary. Prescription Medications: Ibuprofen 600 mg tablets: take 1 tablet orally every 6 hours for 5 days, as needed for pain. Dispense fifteen (15). No refill. Doxycycline 100 mg: Take 1 capsule orally every 12 hours for 10 days. No refill. Follow-up: Follow up with your doctor in three days. (Electronically signed by Caren Goss P.A.-C 09/12/2016 22:28)
--- NOTE | 2016-09-12 23:07 | ED MAR SUMMARY ---
..... Medication Administration Record [facility] [address] [place] [address] Patient: MAEGAN VALENCIA Visit ID: [id number] 41y, M Weight: 104.3 kg Height/Length: 71 in BMI: 32.1 ALLERGIES: No Known Drug Allergy Start 20:41 09/12/2016 Ravi Heller R.N., Stop 22:17 09/12/2016 Ravi Heller R.N. Medication Administered: IV NS (SALINE), Dose: IV Fluids over 1 hour(s), Rate: 1000 mL/hr, Dispensed: 1000 mL bag, Site: #1 right AC. Medication Ordered: IV NS : initial bolus 1000 mL (1000 mL/hr), then 1000 mL/hr for X1 (NOW); Wilver. Start 22:16 09/12/2016 Ravi Heller R.N., Stop 23:02 09/12/2016 Ravi Heller R.N. Medication Administered: IV NS (SALINE), Dose: IV Fluids over 1 hour(s), Rate: 1000 mL/hr, Dispensed: 1000 mL bag, Site: #1 right AC. Medication Ordered: IV NS : initial bolus 1000 mL (1000 mL/hr), then 1000 mL/hr for X1 (NOW); Wilver. Given 22:26 09/12/2016 Ravi Heller R.N. Medication Administered: DOXYCYCLINE MONOHYDRATE [PO], Dose: 100 mg Tablets PO. Medication Ordered: Doxycycline Monohydrate PO 100 mg (NOW).
--- NOTE | 2016-09-12 23:07 | ED MED RECONCILIATION SUMMARY ---
Patient: MAEGAN VALENCIA Medication Reconciliation Report [facility] VisitID: [id number] [place] [address] 41y, M Registration Date/Time: 09/12/2016 Weight: 104.3 kg Height/Length: 71 in. BMI: 32.1 ALLERGIES: No Known Drug Allergy The patient's Home Medications are listed below: NONE. The source(s) of the original Home Medication information: Not obtained. The following Medications were given to the patient in the Emergency Department: IV NS IV Fluids bolus 0, then 1000 mL/hr, administered: 09/12/2016 8:41:00 PM IV NS IV Fluids bolus 0, then 1000 mL/hr, administered: 09/12/2016 10:16:00 PM DOXYCYCLINE MONOHYDRATE [PO] PO 100 mg, administered: 09/12/2016 10:26:00 PM The following Medications were prescribed to the patient: Ibuprofen 600 mg tablets: take 1 tablet orally every 6 hours for 5 days, as needed for pain. Dispense fifteen (15). No refill. -- Caren Goss, P.A.-C Doxycycline 100 mg: Take 1 capsule orally every 12 hours for 10 days. No refill. -- Caren Goss, P.A.-C
--- NOTE | 2016-09-12 23:07 | ED MAR SUMMARY ---
..... Medication Administration Record [facility] [address] [place] [address] Patient: MAEGAN VALENCIA Visit ID: [id number] 41y, M Weight: 104.3 kg Height/Length: 71 in BMI: 32.1 ALLERGIES: No Known Drug Allergy Start 20:41 09/12/2016 Ravi Heller R.N., Stop 22:17 09/12/2016 Ravi Heller R.N. Medication Administered: IV NS (SALINE), Dose: IV Fluids over 1 hour(s), Rate: 1000 mL/hr, Dispensed: 1000 mL bag, Site: #1 right AC. Medication Ordered: IV NS : initial bolus 1000 mL (1000 mL/hr), then 1000 mL/hr for X1 (NOW); Wilver. Start 22:16 09/12/2016 Ravi Heller R.N., Stop 23:02 09/12/2016 Ravi Heller R.N. Medication Administered: IV NS (SALINE), Dose: IV Fluids over 1 hour(s), Rate: 1000 mL/hr, Dispensed: 1000 mL bag, Site: #1 right AC. Medication Ordered: IV NS : initial bolus 1000 mL (1000 mL/hr), then 1000 mL/hr for X1 (NOW); Wilver. Given 22:26 09/12/2016 Ravi Heller R.N. Medication Administered: DOXYCYCLINE MONOHYDRATE [PO], Dose: 100 mg Tablets PO. Medication Ordered: Doxycycline Monohydrate PO 100 mg (NOW).
--- NOTE | 2016-09-12 23:07 | ED DISCHARGE INSTRUCTIONS ---
Patient: MAEGAN VALENCIA General Instructions [facility] VisitID: [id number] [place] [address] 41y, M Registration Date/Time: 09/12/2016 Acute exacerbation of COPD. INSTRUCTIONS Do not work tomorrow. Warnings: Further evaluation is necessary. Prescription Medications: Ibuprofen 600 mg tablets: take 1 tablet orally every 6 hours for 5 days, as needed for pain. Dispense fifteen (15). No refill. Doxycycline 100 mg: Take 1 capsule orally every 12 hours for 10 days. No refill. Follow-up: Follow up with your doctor in three days. ADDITIONAL INFORMATION Bronchitis (Adult: Abx Tx) BRONCHITIS is an infection of the air passages (bronchial tubes). It often occurs during the common cold. Symptoms include cough with mucus (phlegm) and low-grade fever. Bronchitis usually lasts 7-14 days. Mild cases can be treated with simple home remedies. More severe infection is treated with an antibiotic. Home Care: If symptoms are severe, rest at home for the first 2-3 days. When you resume activity, don't let yourself get too tired. Do not smoke. Avoid being exposed to the smoke of others. You may use acetaminophen (Tylenol) or ibuprofen (Motrin, Advil) to control fever or pain, unless another medicine was prescribed for this. [NOTE: If you have chronic liver or kidney disease or ever had a stomach ulcer or GI bleeding, talk with your doctor before using these medicines.] Your appetite may be poor, so a light diet is fine. Avoid dehydration by drinking 6-8 glasses of fluids per day (water, soft, drinks, juices, tea, soup, etc.). Extra fluids will help loosen secretions in the lungs. Qfgb-maa-mfsxojh cough medicines that containdextromethorphan(such as Robitussin DM) and decongestants (Actifed or Sudafed) may help relieve cough and congestion. [NOTE: Do not use decongestants if you have high blood pressure.] Finish all antibiotic medicine, even if you are feeling better after only a few days. Follow Up with your doctor or as directed if you dont start to feel better after three days. [NOTE: If you are age 65 or older, or if you have chronic asthma or COPD, we recommend a PNEUMOCOCCAL VACCINATION every five years and a yearly INFLUENZAVACCINATION (FLU-SHOT) every . Ask your doctor about this. If you had an X-ray, a radiologist will review it. You will be notified of any new findings that may affect your care.] Get Prompt Medical Attention if any of the following occur: Fever over 100.4F (38.0C) for more than three days Trouble breathing, wheezing or pain with breathing Coughing up blood or increased amounts of colored sputum Weakness, drowsiness, headache, facial pain, ear pain or a stiff neck You have been given the following additional information: Bronchitis, Antiobiotic Treatment (Adult) Do not work tomorrow. (Electronically signed by Caren Goss P.A.-C 09/12/2016 22:28)
--- NOTE | 2016-09-12 23:07 | ED MED RECONCILIATION SUMMARY ---
Patient: MAEGAN VALENCIA Medication Reconciliation Report [facility] VisitID: [id number] [place] [address] 41y, M Registration Date/Time: 09/12/2016 Weight: 104.3 kg Height/Length: 71 in. BMI: 32.1 ALLERGIES: No Known Drug Allergy The patient's Home Medications are listed below: NONE. The source(s) of the original Home Medication information: Not obtained. The following Medications were given to the patient in the Emergency Department: IV NS IV Fluids bolus 0, then 1000 mL/hr, administered: 09/12/2016 8:41:00 PM IV NS IV Fluids bolus 0, then 1000 mL/hr, administered: 09/12/2016 10:16:00 PM DOXYCYCLINE MONOHYDRATE [PO] PO 100 mg, administered: 09/12/2016 10:26:00 PM The following Medications were prescribed to the patient: Ibuprofen 600 mg tablets: take 1 tablet orally every 6 hours for 5 days, as needed for pain. Dispense fifteen (15). No refill. -- Caren Goss, P.A.-C Doxycycline 100 mg: Take 1 capsule orally every 12 hours for 10 days. No refill. -- Caren Goss, P.A.-C
== END 2016-09-12 23:07 | disposition home or self-care (01) ==
LOC: ED SRH 20:15
DX: J44.1 Chronic obstructive pulmonary disease with (acute) exacerbation (principal); R00.0 Tachycardia, unspecified; I10 Essential (primary) hypertension; F17.210 Nicotine dependence, cigarettes, uncomplicated
CPT/HCPCS: 90100; 90616; 91400; 91643; 92031; 92610; 92720; 93004; 95059

== ENCOUNTER 2016-09-27 17:19 | Emergency (ER) | payer OTHER ==
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
--- NOTE | 2016-09-27 21:41 | ED MAR SUMMARY ---
..... Medication Administration Record [facility] [address], [place] [id number] Patient: MAEGAN VALENCIA Visit ID: [id number] 41y, M Weight: 111.1 kg Height/Length: 71 in BMI: 34.2 ALLERGIES: No Known Drug Allergy
--- NOTE | 2016-09-27 21:41 | ED MED RECONCILIATION SUMMARY ---
Patient: MAEGAN VALENCIA Medication Reconciliation Report VisitID: [id number] [place] [address] 41y, M Registration Date/Time: 09/27/2016 Weight: 111.1 kg Height/Length: 71 in. BMI: 34.2 ALLERGIES: No Known Drug Allergy The patient's Home Medications are listed below: NONE. The source(s) of the original Home Medication information: Not obtained. The following Medications were given to the patient in the Emergency Department: None. The following Medications were prescribed to the patient: Flexeril 10 mg: Take 1 orally every 8 hours as needed for muscle spasm. Dispense twenty (20). No refills. Substitution is permissible. -- Jane Jade A.R.N.P. Ultram 50 mg tablets: take 1-2 orally every 6 hours as needed for pain. Dispense twenty (20). No refills. Substitution is permissible. -- Jane Jade A.R.N.P.
--- NOTE | 2016-09-27 21:41 | ED MED RECONCILIATION SUMMARY ---
Patient: MAEGAN VALENCIA Medication Reconciliation Report [facility] VisitID: [id number] [place] [address] 41y, M Registration Date/Time: 09/27/2016 Weight: 111.1 kg Height/Length: 71 in. BMI: 34.2 ALLERGIES: No Known Drug Allergy The patient's Home Medications are listed below: NONE. The source(s) of the original Home Medication information: Not obtained. The following Medications were given to the patient in the Emergency Department: None. The following Medications were prescribed to the patient: Flexeril 10 mg: Take 1 orally every 8 hours as needed for muscle spasm. Dispense twenty (20). No refills. Substitution is permissible. -- Jane Jade A.R.N.P. Ultram 50 mg tablets: take 1-2 orally every 6 hours as needed for pain. Dispense twenty (20). No refills. Substitution is permissible. -- Jane Jade A.R.N.P.
--- NOTE | 2016-09-27 21:41 | ED MAR SUMMARY ---
..... Medication Administration Record [facility] [address], [place] [id number] Patient: MAEGAN VALENCIA Visit ID: [id number] 41y, M Weight: 111.1 kg Height/Length: 71 in BMI: 34.2 ALLERGIES: No Known Drug Allergy
== END 2016-09-27 17:53 | disposition home or self-care (01) ==
LOC: ED SRH 17:19
DX: S16.1XXA Strain of muscle, fascia and tendon at neck level, initial encounter (principal); S39.012A Strain of muscle, fascia and tendon of lower back, initial encounter; V43.52XA Car driver injured in collision with other type car in traffic accident, initial encounter; Y93.9 Activity, unspecified; Y99.9 Unspecified external cause status; Y92.9 Unspecified place or not applicable; J44.0 Chronic obstructive pulmonary disease with (acute) lower respiratory infection; I10 Essential (primary) hypertension; F17.210 Nicotine dependence, cigarettes, uncomplicated